=== PATIENT | female | born 1970 | race Two or more races ===

== ENCOUNTER 2021-03-04 05:34 | Emergency (ER) | payer SELFPAY ==
[~2021-03-04] VITALS: Ht 162.6 cm; Wt 95.3 kg
[2021-03-04 07:26] LABS: Basophils # (auto) 0.1 10 ^3/uL (0-0.2); Basophils % (auto) 0.3 % (0.0-2.0); Eosinophils # (auto) 0 10 ^3/uL (0-0.8); Eosinophils % (auto) 0.1 % (0.0-7.0); Hemoglobin 13.6 g/dL (12.2-16.2); Lymphocytes # (auto) 1.7 10 ^3/uL (0.4-5.4); Lymphocytes % (auto) 10.5 % (10.0-50.0); Mean Corpuscular Hemoglobin 29.2 pg (28.0-32.0); Mean Corpuscular Hgb Conc. 34.9 g/dL (32.0-36.0); Mean Corpuscular Volume 83.6 fL (80.0-100.0); Monocytes # (auto) 0.9 10 ^3/uL (0-1.3); Monocytes % (auto) 5.4 % (0.0-12.0); Neutrophils # (auto) 13.2 10 ^3/uL (1.6-8.6); Neutrophils % (auto) 83.7 % (37.0-80.0); Red Blood Cells 4.67 10^6/uL (4.0-5.20); Red Cell Distribution Width 14.4 % (11.8-14.3); White Blood Cell 15.8 10^3/uL (4.4-10.8)
[2021-03-04 07:36] LABS: Chloride 105 mmol/L (98-107); Sodium 133 mmol/L (136-145)
[2021-03-04 07:45] LABS: Alanine Aminotransferase 105 U/L (13-56); Albumin 3.2 g/dL (3.4-5.0); Alkaline Phosphatase 116 U/L (45-117); Anion Gap 6 (5-15); Aspartate Aminotransferase 83 U/L (15-37); BUN/Creatinine Ratio 20.3; Bilirubin, Total 1.2 mg/dL (0.2-1.0); Blood Urea Nitrogen 16 mg/dL (7-18); Calcium 8.7 mg/dL (8.5-10.1); Carbon Dioxide 22 mmol/L (21-32); GFR African American 99 mL/min; GFR Non-African American 82 mL/min; Glucose 178 mg/dL (74-106); Magnesium 2.4 mg/dL (1.6-2.6); Total Protein 8.1 g/dL (6.4-8.2)
[2021-03-04 07:46] LABS: INR 1.11 (0.9-1.15); Partial Thromboplastin Time 29.9 sec (23.0-31.2)
[2021-03-04] MEDS ORDERED: MORPHINE SULFATE 4 MG/ML SYR/VIAL IV ONE (08:00)
[2021-03-04] MEDS ORDERED: ONDANSETRON HCL 4 MG/2 ML VIAL IV ONE (08:00)
[2021-03-04] MEDS ORDERED: IOHEXOL 350 MG/ML 100ML IJ ONE (09:05)
[2021-03-04 12:30] VITALS: BP 126/84
== END 2021-03-04 12:49 | disposition home or self-care (01) ==
LOC: EDBD 05:34 → ER 05:34
DX: R07.89 Other chest pain (principal); F41.9 Anxiety disorder, unspecified
CPT/HCPCS: 36415; 71275; 80053; 83735; 83880; 84443; 84484; 85025; 85379; 85610; 85730; 93005; 96374; 96375; 99285; J2270; J2405; Q9967